=== PATIENT | female | born 1970 | race Hispanic/Latino ===

== ENCOUNTER 2021-10-02 09:24 | Observation (INO) | payer BC ==
[2021-09-26 17:15] LABS: BASOPHILS % (AUTO) 0.5 % (0.0-5.0); EOSINOPHILS % (AUTO) 1.5 % (0.0-8.0); LYMPHOCYTES % (AUTO) 28.1 % (21.0-51.0); MEAN CORPUSCULAR HEMOGLOBIN 29.2 pg (27.0-33.0); MEAN CORPUSCULAR HGB CONC 32.4 g/dL (32.0-36.0); MEAN CORPUSCULAR VOLUME 89.9 fL (79-99); MONOCYTES % (AUTO) 7.8 % (3.0-13.0); NEUTROPHILS % (AUTO) 61.8 % (40.0-77.0); PLATELET COUNT (AUTO) 283 K/uL (130-400); RED BLOOD CELL COUNT(AUTO) 4.56 MIL/uL (4.00-5.50); RED CELL DISTRIBUTION WIDTH 14.3 % (11.0-15.5); WHITE BLOOD COUNT (AUTO) 7.8 K/uL (4.8-10.8)
[2021-09-26 17:31] LABS: ALBUMIN 3.6 g/dL (3.5-5.0); BILIRUBIN,TOTAL 0.3 mg/dL (0.2-1.0); CREATININE 0.7 mg/dL (0.5-1.5); POTASSIUM 3.8 mmol/L (3.5-5.1); TOTAL PROTEIN, SERUM 7.3 g/dL (6.0-8.3)
[2021-10-01 10:12] VITALS: BP 138/57
[~2021-10-02] VITALS: Ht 149.9 cm; Wt 77.7 kg
[2021-10-02] VITALS (23 sets, daily range): BP systolic 123–148; BP diastolic 47–66
[~2021-10-02 09:24] MED LIST: DEXL60CA3 PO; FAMO40TA7 PO; HYDR12.54 PO; LEVO50CA4 PO; LIOT25TA12 PO; MAGN400T40 PO
[2021-10-02] MEDS ORDERED: LACTATED RINGERS 1000ML 1,000 ML IV ONE (10:02)
[2021-10-02] MEDS ORDERED: CEFAZOLIN SODIUM 1 GM VIAL ONE (10:03)
[2021-10-02] MEDS: CEFAZOLIN SODIUM 1 GM VIAL ONE ×2 (10:38→16:00)
[2021-10-02] MEDS ORDERED: LIDOCAINE PF 100MG/5ML (2%) SYRINGE 5ML ONE ×2 (14:22→15:07)
[2021-10-02] MEDS ORDERED: PROPOFOL 10 MG/ML 20ML VIAL IV ONE ×2 (14:22→15:07)
[2021-10-02] MEDS ORDERED: MIDAZOLAM HCL 1 MG/ML 2ML VIAL ONE ×2 (14:22→15:07)
[2021-10-02] MEDS ORDERED: SUCCINYLCHOLINE 200MG/10ML SYR ONE ×2 (14:22→15:07)
[2021-10-02] MEDS ORDERED: DEXAMETHASONE SOD PHOSPHATE 10MG/ML 1ML VIAL ONE ×2 (14:22→15:07)
[2021-10-02] MEDS ORDERED: NEOSTIGMINE 5MG/5ML SYR IV ONE ×2 (14:23→15:08)
[2021-10-02] MEDS ORDERED: GLYCOPYRROLATE 1 MG/5 ML SYRINGE ONE ×2 (14:23→15:07)
[2021-10-02] MEDS ORDERED: ROCURONIUM 10MG/1ML SYR 10 MG/ML ML ONE ×3 (14:23→16:31)
[2021-10-02] MEDS ORDERED: ONDANSETRON 4MG INJ ONE ×3 (14:23→16:26)
[2021-10-02] MEDS ORDERED: FENTANYL CITRATE PF 50 MCG/1 ML 2ML VIAL ONE ×3 (14:23→16:35)
[2021-10-02] MEDS ORDERED: BUPIVACAINE/PF 0.25% 30ML VIAL IJ ONE (16:29)
[2021-10-02] MEDS ORDERED: EPHEDRINE SULFATE 50 MG/ML AMPULE ONE (16:42)
[2021-10-02] MEDS ORDERED: ROCURONIUM BROMIDE 10MG/1ML 5ML VL ONE (17:14)
[2021-10-02] MEDS ORDERED: HYDROCODONE/ACETAMINOPHEN 5/325 MG TAB PO PRN (18:30)
[2021-10-02] MEDS ORDERED: ONDANSETRON 4MG INJ IV PRN (18:30)
[2021-10-02] MEDS ORDERED: MEPERIDINE-PF 25 MG/ML SYG ONE (18:57)
[2021-10-02] MEDS: LACTATED RINGERS 1000ML 1,000 ML IV SCH (20:56)
[2021-10-02] MEDS: LIOTHYRONINE SODIUM 25 MCG PO SCH (20:58)
[2021-10-02] MEDS: FAMOTIDINE 20MG VIAL IV SCH (21:08)
[2021-10-02] MEDS: HYDROMORPHONE 0.5 MG SYG (0.5MG/0.5ML) IV PRN (21:35)
[2021-10-03 00:45] VITALS: BP 149/55
[2021-10-03 01:45] VITALS: BP 141/60
[2021-10-03] MEDS: HYDROMORPHONE 0.5 MG SYG (0.5MG/0.5ML) IV PRN ×3 (03:46→12:25)
[2021-10-03 04:00] VITALS: BP 128/65
[2021-10-03] MEDS: LACTATED RINGERS 1000ML 1,000 ML IV SCH ×2 (04:10→14:30)
[2021-10-03] MEDS ORDERED: LEVOTHYROXINE 50 MCG TABLET PO SCH (06:30)
[2021-10-03] MEDS: FAMOTIDINE 20MG VIAL IV SCH (08:01)
[2021-10-03 08:10] VITALS: BP 145/58
[2021-10-03] MEDS ORDERED: PANTOPRAZOLE 40 MG TAB DR PO SCH (09:00)
[2021-10-03] MEDS ORDERED: MAGNESIUM OXIDE 400 MG TABLET PO SCH (09:00)
[2021-10-03] MEDS ORDERED: HYDROCHLOROTHIAZIDE 25 MG TABLET PO SCH (09:00)
[2021-10-03] MEDS ORDERED: ENOXAPARIN SODIUM 30 MG/0.3 ML SQ SCH (09:00)
[2021-10-03] MEDS: LIOTHYRONINE SODIUM 25 MCG PO SCH (09:17)
[2021-10-03 12:00] VITALS: BP 128/68
== END 2021-10-03 19:15 | disposition home or self-care (01) ==
LOC: DAH 09:24 → 3AH 09:25
PROVIDERS: ADMIT Surgery; ATTEND Surgery
DX: K44.9 Diaphragmatic hernia without obstruction or gangrene (principal); Z20.822 Contact with and (suspected) exposure to COVID-19; K21.9 Gastro-esophageal reflux disease without esophagitis; K76.0 Fatty (change of) liver, not elsewhere classified; E03.9 Hypothyroidism, unspecified; G40.909 Epilepsy, unspecified, not intractable, without status epilepticus; R94.5 Abnormal results of liver function studies; R14.2 Eructation; Z90.710 Acquired absence of both cervix and uterus; Z79.899 Other long term (current) drug therapy
CPT/HCPCS: 36415 ×2; 43235; 43281; 80053; 85025; 86850 ×2; 86900 ×2; 86901 ×2; 87635; 93005; 96372; 96374; 96375; 96376; A4215 ×2; A4221; A4222; A4223; A4600; A4649; A4663; A4930; C9803; G0168; G0378 ×24; J0330 ×2; J0690 ×2; J1100 ×2; J1170 ×4; J1650; J2001 ×2; J2175; J2250; J2405 ×4; J2704; J2710; J3010 ×2; J3490 ×6; J7030; J7120 ×4